=== PATIENT | male | born 1960 | race Caucasian/White ===

== ENCOUNTER 2018-06-21 17:33 | Emergency (ER) | payer OTHER ==
[2018-06-21 18:11] LABS: PLATELET COUNT 208 10^3/uL (150-400)
--- NOTE | 2018-06-21 18:26 | EDPHY ---
H & P Time Seen by Provider: 06/21/18 17:55 HPI/ROS: CHIEF COMPLAINT: Bilateral chest pain HISTORY OF PRESENT ILLNESS: History of pulmonary embolism in 2006 and then again 2010, is currently on Pradaxa. He has a history of chronic chest pain which she describes as pleuritic in both sides of his lower chest which is been worse for the past week. He says he feels like his"pain is been elevated. "Associated with some heaviness in his chest. He is not associated with hemoptysis or leg swelling, not affected by position or exertion. He has a chronic cough it has been a little bit worse for a week. No trauma. No skin rash. No fever or chills. REVIEW OF SYSTEMS: Eye: no change in vision ENT: no sore throat Cardiac: HPI Pulmonary: HPI Abdomen: no vomiting, diarrhea, abdominal pain Musculoskeletal: no back pain Skin: no rash Neuro: no headache Constitutional: no fever : no urinary symptoms A comprehensive 10 point review of systems is otherwise negative aside from elements mentioned in the history of present illness. PAST MEDICAL HISTORY: Pulmonary embolism x2, pneumonia, depression Social history: Nonsmoker General Appearance: Alert and conversant, cooperative. Eyes: No scleral icterus. ENT, Mouth: Normal mucous membranes. Respiratory: Normal respiratory effort, breath sounds equal, lungs are clear to auscultation. Speaks in full sentences. Cardiovascular: Regular rate and rhythm. Gastrointestinal: Abdomen is soft and non tender. Neurological: Alert, face symmetric, normal motor and sensory in extremities. Skin: Warm and dry, no rashes. Musculoskeletal: No peripheral edema. Psychiatric: Not agitated. Emergency Department course/MDM: I think this patient is unlikely to have ACS. This is by history an exacerbation of his chronic chest pain which happened after his pulmonary embolism in the past. He has had symptoms for a week and he does not have ischemic EKG. Patient is personally suspicious of recurrent pulmonary embolism, requesting CT angiography of his chest which I think is reasonable. He does not want D-dimer screening. 1943: Results discussed with he patient including lung nodule requiring mandatory follow-up to exclude cancer. He will contact his primary care doctor and arrange. Smoking Status: Never smoked Constitutional: Initial Vital Signs Temperature (C) 37.2 C 06/21/18 17:42 Heart Rate 76 06/21/18 17:42 Respiratory Rate 16 06/21/18 17:42 Blood Pressure 142/95 H 06/21/18 17:42 O2 Sat (%) 98 06/21/18 17:42 O2 Delivery Mode Room Air Allergies/Adverse Reactions: No Known Allergies Allergy (Unverified 06/21/18 17:42) Home Medications: Medication Instructions Recorded Lamotrigine 06/21/18 Pradaxa 06/21/18 Wellbutrin 100mg (*) 06/21/18 Medical Decision Making - Diagnostics EKG Interpretation: 12-lead EKG interpreted by me; official reading is in computer system. My interpretation is sinus rhythm rate 64 no ischemic changes. Imaging Results: Imaging Impressions Chest/Thorax CTA 06/21/18 18:36 Impression: 1. No evidence of thrombopulmonary embolic disease. 2. Irregular 7 mm pulmonary nodule in the right lower lobe and adjacent nodularity and interstitial prominence in the right lower lobe. Mild discoid atelectasis or scarring in the right lower lobe at the lung base. This could be secondary to prior infection or acute inflammatory infectious etiology. Comparison to prior study would be useful. Otherwise, recommend follow-up chest CT in 6 months. 3. Small hiatal hernia. Results called and discussed with Dr. Jose C Da Silva on 06/21/2018, 19:28. Imaging: Discussed imaging studies w/ machine precision engraver Radiologist Differential Diagnosis: Differential diagnosis considered for chest pain including but not limited to myocardial ischemia, aortic dissection, pericarditis, pulmonary embolus, chest wall pain, pleural inflammation and pulmonary infectious causes. - Data Points Laboratory Results: Laboratory Results 06/21/18 18:00 06/21/18 18:00 06/21/18 06/21/18 18:00 18:00 WBC 4.54 10^3/uL 10^3/uL (3.80-9.50) RBC 4.84 10^6/uL 10^6/uL (4.40-6.38) Hgb 14.9 g/dL g/dL (13.7-17.5) Hct 44.9 % % (40.0-51.0) MCV 92.8 fL fL (81.5-99.8) MCH 30.8 pg pg (27.9-34.1) MCHC 33.2 g/dL g/dL (32.4-36.7) RDW 13.7 % % (11.5-15.2) Plt Count 208 10^3/uL 10^3/uL (150-400) MPV 9.6 fL fL (8.7-11.7) Neut % (Auto) 54.6 % % (39.3-74.2) Lymph % (Auto) 19.4 % % (15.0-45.0) [place] % (Auto) 24.0 % H % (4.5-13.0) Eos % (Auto) 0.2 % L % (0.6-7.6) Baso % (Auto) 1.1 % % (0.3-1.7) Nucleat RBC Rel Count 0.0 % % (0.0-0.2) Absolute Neuts (auto) 2.48 10^3/uL 10^3/uL (1.70-6.50) Absolute Lymphs (auto) 0.88 10^3/uL L 10^3/uL (1.00-3.00) Absolute Monos (auto) 1.09 10^3/uL H 10^3/uL (0.30-0.80) Absolute Eos (auto) 0.01 10^3/uL L 10^3/uL (0.03-0.40) Absolute Basos (auto) 0.05 10^3/uL 10^3/uL (0.02-0.10) Absolute Nucleated RBC 0.00 10^3/uL 10^3/uL (0-0.01) Immature Gran % 0.7 % % (0.0-1.1) Immature Gran # 0.03 10^3/uL 10^3/uL (0.00-0.10) Sodium 135 mEq/L mEq/L (135-145) Potassium 4.7 mEq/L mEq/L (3.5-5.2) Chloride 102 mEq/L mEq/L (97-110) Carbon Dioxide 26 mEq/l mEq/l (22-31) Anion Gap 7 mEq/L mEq/L (6-14) BUN 15 mg/dL mg/dL (7-23) Creatinine 0.8 mg/dL mg/dL (0.7-1.3) Estimated GFR > 60 Glucose 83 mg/dL mg/dL (70-100) Calcium 9.2 mg/dL mg/dL (8.5-10.4) Departure - Departure Disposition: Home, Routine, Self-Care Clinical Impression: Chest pain Qualifiers: Chest pain type: unspecified Qualified Code(s): R07.9 - Chest pain, unspecified Condition: Good Instructions: Chest Pain (ED) Additional Instructions: Negative CT for pulmonary embolism. 7mm right lower lobe nodule requires repeat CT imaging in 6 months. Referrals: Rich Medina MD [Primary Care Provider] - As per Instructions
--- NOTE | 2018-06-21 18:39 | CPEKG ---
Test Reason : OPEN Blood Pressure : / mmHG Vent. Rate : 064 BPM Atrial Rate : 064 BPM P-R Int : 160 ms QRS Dur : 088 ms QT Int : 365 ms P-R-T Axes : 059 076 046 degrees QTc Int : 377 ms Sinus rhythm Confirmed by Jose C Da Silva ([id number]) on 06/21/2018 6:39:16 PM Referred By: Confirmed By:Jose C Da Silva
[2018-06-21] MEDS ORDERED: IOPAMIDOL (ISOVUE 370) 100 ML BTL IV ONE (18:41)
[2018-06-21 19:20] VITALS: BP 133/81
== END 2018-06-21 19:55 | disposition home or self-care (01) ==
DX: R07.9 Chest pain, unspecified (principal); R91.1 Solitary pulmonary nodule
CPT/HCPCS: Q9967

== ENCOUNTER 2018-09-26 09:30 | Emergency (ER) | payer OTHER ==
[2018-09-26] MEDS ORDERED: NS 1,000 ML IV ONE (10:02)
--- NOTE | 2018-09-26 10:10 | EDPHY ---
H & P Stated Complaint: fatigue Time Seen by Provider: 09/26/18 09:46 HPI/ROS: CHIEF COMPLAINT: Generalized weakness and fatigue HISTORY OF PRESENT ILLNESS: 58-year-old male with history of recurrent pneumonia and pulmonary embolism presents with generalized weakness and fatigue. Onset of fatigue 2 days ago, mainly sleeping/lying in bed during the day. Associated with gradually increasing generalized weakness and constant pain in his upper back and chest x 2 days. No cough or fever. Not short of breath now, but has felt short of breath intermittently over the last couple of days, using his inhaler with relief. Concerned that he has pneumonia. REVIEW OF SYSTEMS: complete 10 point ROS reviewed and is negative except for the noted elements in the HPI Source: Patient - Personal History Current Tetanus/Diphtheria Vaccine: Yes Current Tetanus Diphtheria and Acellular Pertussis (TDAP): Yes - Medical/Surgical History Hx Asthma: No Hx Chronic Respiratory Disease: Yes Hx Diabetes: No Hx Cardiac Disease: No Hx Renal Disease: No Hx Cirrhosis: No Hx Alcoholism: No Hx HIV/AIDS: No Hx Splenectomy or Spleen Trauma: No Other PMH: PE, PNA, depression, - Social History Smoking Status: Former smoker Alcohol Use: Sober Drug Use: None - Physical Exam Exam: General Appearance: Alert, pleasant Eyes: Pupils equal and round, no conjunctival pallor ENT, Mouth: Mucous membranes moist Neck: Normal inspection Respiratory: Normal respiratory rate, Lungs are clear to auscultation, no wheezing Cardiovascular: Regular rate and rhythm Gastrointestinal: Abdomen is soft and nontender Neurological: A&O, motor 5/5, patellar DTRs undetectable, steady gait Skin: Warm and dry Extremities: Nontender, no pedal edema Psychiatric: Mood and affect normal Constitutional: Initial Vital Signs Temperature (C) 36.9 C 09/26/18 09:40 Heart Rate 83 09/26/18 09:40 Respiratory Rate 16 09/26/18 09:40 Blood Pressure 86/67 L 09/26/18 09:40 O2 Sat (%) 99 09/26/18 09:40 O2 Delivery Mode Room Air Allergies/Adverse Reactions: No Known Allergies Allergy (Unverified 09/26/18 09:38) Home Medications: Medication Instructions Recorded Lamotrigine 06/21/18 Pradaxa 06/21/18 Wellbutrin 100mg (*) 06/21/18 Albuterol 09/26/18 Multivitamin 09/26/18 Vicodin 5-300 mg Tablet 09/26/18 Zyrtec 09/26/18 traZODone 09/26/18 Medical Decision Making - Diagnostics Imaging Results: Imaging Impressions Chest/Thorax CTA 09/26/18 10:39 Impression: 1. No evidence of thrombopulmonary embolic disease. 2. Resolution of the 7 mm irregular pulmonary nodule in the right lower lobe indicating it was an inflammatory nodule. No need for further follow-up. 3. Stable scarring in the right lower lobe. Results called and discussed with Dr. Amina Vasquez on 09/26/2018, 11:54. Imaging: Discussed imaging studies w/ call center director Radiologist ED Course/Re-evaluation: Initial VS reviewed. Repeat BP 112/67 once in ED room. Chest x-ray advised, patient declines, stating that his chest x-ray is abnormal at baseline. Requests CT scan for further evaluation. CT scan of the chest obtained and is unremarkable. Results discussed with the patient. He continues to feel fatigued. Monitoring of vital signs throughout his emergency department stay; vital signs are normal. Blood pressure is currently 108/73 and heart rate 76. Again, patient was hypotensive at triage, unclear if this was a valid reading or not. No hypotension while in the ED. In addition, he is not ill appearing, no evidence of infection and there are no signs of dehydration on exam. IV normal saline 1 L given. Laboratory studies unremarkable. CT scan results discussed with the patient and his and are unremarkable as well. Will discharge the patient home. Warning signs discussed. Unclear etiology of symptoms. f/u PCP. Differential Diagnosis: Differential diagnosis includes though it is not limited to pneumonia, pneumothorax, pulmonary embolism, aortic dissection, pericarditis, acute coronary syndrome. - Data Points Laboratory Results: Laboratory Results 09/26/18 10:05 09/26/18 10:05 09/26/18 09/26/18 09/26/18 10:55 10:25 10:20 WBC RBC Hgb POC Hgb 17.0 gm/dL gm/dL (13.7-17.5) Hct POC Hct 50 % % (40-51) MCV MCH MCHC RDW Plt Count MPV Neut % (Auto) Lymph % (Auto) [place] % (Auto) Eos % (Auto) Baso % (Auto) Nucleat RBC Rel Count Absolute Neuts (auto) Absolute Lymphs (auto) Absolute Monos (auto) Absolute Eos (auto) Absolute Basos (auto) Absolute Nucleated RBC Immature Gran % Immature Gran # VBG Lactic Acid 1.4 mmol/L mmol/L (0.7-2.1) POC Sodium 143 mEq/L mEq/L (135-145) Sodium POC Potassium 4.5 mEq/L mEq/L (3.3-5.0) Potassium POC Chloride 105 mEq/L mEq/L (97-110) Chloride Carbon Dioxide POC Total CO2 29 mEq/L mEq/L (22-31) Anion Gap POC BUN 16 mg/dL mg/dL (7-23) BUN Creatinine POC Creatinine 0.9 mg/dL mg/dL (0.7-1.3) Estimated GFR Glucose POC Glucose 107 mg/dL H mg/dL (70-100) Calcium Urine Color YELLOW Urine Appearance CLEAR Urine pH 6.0 (5.0-7.5) Ur Specific [place] 1.023 (1.002-1.030) Urine Protein NEGATIVE (NEGATIVE) Urine Ketones NEGATIVE (NEGATIVE) Urine Blood NEGATIVE (NEGATIVE) Urine Nitrate NEGATIVE (NEGATIVE) Urine Bilirubin NEGATIVE (NEGATIVE) Urine Urobilinogen NEGATIVE EU EU (0.2-1.0) Ur Leukocyte Esterase NEGATIVE (NEGATIVE) Urine Glucose NEGATIVE (NEGATIVE) 09/26/18 09/26/18 10:05 10:05 WBC 4.79 10^3/uL 10^3/uL (3.80-9.50) RBC 5.32 10^6/uL 10^6/uL (4.40-6.38) Hgb 16.3 g/dL g/dL (13.7-17.5) POC Hgb Hct 49.1 % % (40.0-51.0) POC Hct MCV 92.3 fL fL (81.5-99.8) MCH 30.6 pg pg (27.9-34.1) MCHC 33.2 g/dL g/dL (32.4-36.7) RDW 13.3 % % (11.5-15.2) Plt Count 198 10^3/uL 10^3/uL (150-400) MPV 9.9 fL fL (8.7-11.7) Neut % (Auto) 53.4 % % (39.3-74.2) Lymph % (Auto) 31.3 % % (15.0-45.0) [place] % (Auto) 12.3 % % (4.5-13.0) Eos % (Auto) 1.5 % % (0.6-7.6) Baso % (Auto) 1.3 % % (0.3-1.7) Nucleat RBC Rel Count 0.0 % % (0.0-0.2) Absolute Neuts (auto) 2.56 10^3/uL 10^3/uL (1.70-6.50) Absolute Lymphs (auto) 1.50 10^3/uL 10^3/uL (1.00-3.00) Absolute Monos (auto) 0.59 10^3/uL 10^3/uL (0.30-0.80) Absolute Eos (auto) 0.07 10^3/uL 10^3/uL (0.03-0.40) Absolute Basos (auto) 0.06 10^3/uL 10^3/uL (0.02-0.10) Absolute Nucleated RBC 0.00 10^3/uL 10^3/uL (0-0.01) Immature Gran % 0.2 % % (0.0-1.1) Immature Gran # 0.01 10^3/uL 10^3/uL (0.00-0.10) VBG Lactic Acid POC Sodium Sodium 140 mEq/L mEq/L (135-145) POC Potassium Potassium 4.8 mEq/L mEq/L (3.5-5.2) POC Chloride Chloride 104 mEq/L mEq/L (97-110) Carbon Dioxide 29 mEq/l mEq/l (22-31) POC Total CO2 Anion Gap 7 mEq/L mEq/L (6-14) POC BUN BUN 17 mg/dL mg/dL (7-23) Creatinine 0.8 mg/dL mg/dL (0.7-1.3) POC Creatinine Estimated GFR > 60 Glucose 103 mg/dL H mg/dL (70-100) POC Glucose Calcium 9.4 mg/dL mg/dL (8.5-10.4) Urine Color Urine Appearance Urine pH Ur Specific [place] Urine Protein Urine Ketones Urine Blood Urine Nitrate Urine Bilirubin Urine Urobilinogen Ur Leukocyte Esterase Urine Glucose Medications Given: Discontinued Medications Sodium Chloride (Ns) 1,000 mls @ 0 mls/hr IV EDNOW ONE; Wide Open PRN Reason: Protocol Stop: 09/26/18 10:03 Last Admin: 09/26/18 10:15 Dose: 1,000 mls Point of Care Test Results: Chemistry 09/26/18 10:25 POC Sodium 143 mEq/L mEq/L (135-145) POC Potassium 4.5 mEq/L mEq/L (3.3-5.0) POC Chloride 105 mEq/L mEq/L (97-110) POC Total CO2 29 mEq/L mEq/L (22-31) POC BUN 16 mg/dL mg/dL (7-23) POC Creatinine 0.9 mg/dL mg/dL (0.7-1.3) POC Glucose 107 mg/dL H mg/dL (70-100) ISTAT H&H 09/26/18 10:25 POC Hgb 17.0 gm/dL gm/dL (13.7-17.5) POC Hct 50 % % (40-51) Departure - Departure Disposition: Home, Routine, Self-Care Clinical Impression: Fatigue Qualifiers: Fatigue type: unspecified Qualified Code(s): R53.83 - Other fatigue Condition: Good Instructions: Fatigue (ED) Additional Instructions: Your tests are unremarkable today, including blood tests and CT scan of the chest. Call your physician to make a follow-up appointment. Return for worsening symptoms or any concerns. Referrals: Lea Rojas MD [Primary Care Provider] - 1-2 days without fail
[2018-09-26 10:15] LABS: PLATELET COUNT 198 10^3/uL (150-400)
[2018-09-26] MEDS ORDERED: IOPAMIDOL (ISOVUE 370) 100 ML BTL IV ONE (10:49)
[2018-09-26 12:44] VITALS: BP 119/83
--- NOTE | 2018-09-26 14:53 | CPEKG ---
Test Reason : OPEN Blood Pressure : / mmHG Vent. Rate : 073 BPM Atrial Rate : 072 BPM P-R Int : 157 ms QRS Dur : 089 ms QT Int : 362 ms P-R-T Axes : 075 231 054 degrees QTc Int : 399 ms Sinus rhythm Markedly posterior QRS axis Confirmed by Amina Montes ([id number]) on 09/26/2018 2:52:30 PM Referred By: AMINA MONTES Confirmed By:Amina Montes
== END 2018-09-26 12:50 | disposition home or self-care (01) ==
LOC: SUPCPDRO 09:30
DX: R53.83 Other fatigue (principal); R53.1 Weakness; Z79.01 Long term (current) use of anticoagulants; Z87.01 Personal history of pneumonia (recurrent); Z86.711 Personal history of pulmonary embolism; Z87.891 Personal history of nicotine dependence
CPT/HCPCS: 82435-PO; 82565-PO; 82947-PO; 84132-PO; 84295-PO; 84520-PO; 85014-ER; Q9967